=== PATIENT | male | born 1930 | race African-American/Black ===

== ENCOUNTER 2019-09-10 17:12 | Inpatient (IN) | payer MEDICARE ==
[~2019-09-10] VITALS: Ht 180.3 cm; Wt 45.4 kg
--- NOTE | 2019-09-10 17:30 | NUR ---
ED Nurse Note: Pt brought in by ambulance from [facility] d/t failure to thrive x 1 day, poor PO intake. Per pt, he [facility] not like food at the [facility], and he also reports feeling like something is stuck in his throat. Respirations even and unlabored on room air. Vitals stable as documented.
[2019-09-10] MEDS ORDERED: SENNO8.6 MG ORAL (17:43)
[2019-09-10] MEDS ORDERED: VOLTAREN100 G1 TP (17:43)
[2019-09-10] MEDS ORDERED: MULTIPLE VITAM1 EAC6 PO (17:43)
[2019-09-10] MEDS ORDERED: FERROUS SULFAT325 MG ORAL (17:43)
[2019-09-10] MEDS ORDERED: FLONASE ALLERG9.9 ML NS (17:43)
[2019-09-10] MEDS ORDERED: SYNTHROID100 MCG ORAL (17:43)
[2019-09-10] MEDS ORDERED: GUAIFENESIN DM118 M1 ORAL (17:43)
[2019-09-10] MEDS ORDERED: DULCOLAX10 MG RC (17:43)
[2019-09-10] MEDS ORDERED: HYDRALAZINE HCL25 M1 ORAL (17:43)
[2019-09-10] MEDS ORDERED: DOCUSATE SODIU250 MG ORAL (17:43)
[2019-09-10] MEDS ORDERED: AMIODARONE HCL100 MG ORAL (17:43)
[2019-09-10] MEDS ORDERED: ACETAMINOPHEN325 M1 ORAL (17:43)
[2019-09-10] MEDS ORDERED: MILK OF MA400 MG/51 ORAL (17:43)
[2019-09-10] MEDS ORDERED: ATORVASTATIN CA80 MG ORAL (17:43)
[2019-09-10] MEDS ORDERED: CRANBERRY425 MG PO (17:43)
[2019-09-10] MEDS ORDERED: ASPIRIN81 MG ORAL (17:43)
[2019-09-10] MEDS ORDERED: PROTONIX40 MG ORAL (17:43)
[2019-09-10] MEDS ORDERED: MIRALAX17 G2 ORAL (17:43)
[2019-09-10] MEDS ORDERED: FLEET ENEMA133 ML RECTAL (17:43)
[2019-09-10] MEDS ORDERED: MAGNESIUM OXID400 M1 ORAL (17:43)
[2019-09-10] MEDS ORDERED: PROSCAR5 MG ORAL (17:43)
--- NOTE | 2019-09-10 17:59 | NUR ---
ED Nurse Note: gave pt urinal for urine specimen. Pt does not want to be straight cath'd for urine, but says he cannot void yet.
[2019-09-10 18:04] VITALS: BP 141/72
[2019-09-10 18:05] LABS: BASOPHILS % (AUTO) 0.8 % (0.0-2.0); EOSINOPHILS % (AUTO) 0.3 % (0.0-3.0); HEMATOCRIT 41.6 % (42.0-52.0); HEMOGLOBIN 12.5 G/DL (14.2-18.0); LYMPHOCYTES % (AUTO) 11.6 % (20.0-45.0); MEAN CORPUSCULAR VOLUME 103 FL (80-99); MONOCYTES % (AUTO) 6.8 % (1.0-10.0); NEUTROPHILS % (AUTO) 80.5 % (45.0-75.0); PLATELET COUNT 136 K/UL (150-450); RED BLOOD COUNT 4.03 M/UL (4.70-6.10); RED CELL DISTRIBUTION WIDTH 14.6 % (11.6-14.8); WHITE BLOOD COUNT 5.9 K/UL (4.8-10.8)
--- NOTE | 2019-09-10 18:08 | Emergency Room Report ---
History of Present Illness General Chief Complaint: General Complaint Source: Medical Record, EMS Present Illness HPI Disclaimer: Please note that this report is being documented using [employer] technology. This can lead to erroneous entry secondary to incorrect interpretation by the dictating instrument. HPI: 88-year-old male history of metabolic encephalopathy, atrial fibrillation, peripheral vascular disease, dysphasia presented for difficulty eating. Apparently patient has had difficulty eating for the past few days. States he sometimes coughs when he eats. He states he is hungry. Patient does report a cough but denies shortness of breath or fever.. Patient was recently COVID +2 months ago. PMH: As above PSH: Reviewed Social Hx: Currently lives in a snf facility Allergies: Coded Allergies: No Known Allergies (Unverified , 09/10/19) COVID-19 Screening Contact w/high risk pt: No Recent Travel to affected area: No Experienced COVID-19 symptoms?: No COVID-19 Testing performed HR ADVISOR: No Patient History Reviewed Nursing Documentation: PMH: Agreed; PSxH: Agreed Nursing Documentation-PMH Past Medical History: No History, Except For Review of Systems All Other Systems: negative except mentioned in HPI Physical Exam Vital Signs Date Time Temp Pulse Resp B/P (MAP) Pulse Ox O2 Delivery O2 Flow Rate FiO2 09/10/19 17:13 97.5 72 16 144/66 (92) 95 Room Air Sp02 EP Interpretation: reviewed, normal General Appearance: cachetic, Chronically Ill Head: normocephalic, atraumatic Eyes: bilateral eye PERRL, bilateral eye EOMI ENT: hearing grossly normal, dry mucus membranes Neck: full range of motion, supple Respiratory: lungs clear, normal breath sounds, no rhonchi, no respiratory distress, no retraction, no wheezing Cardiovascular #1: normal peripheral pulses, regular rate, rhythm, no murmur Gastrointestinal: non tender, soft, non-distended, no guarding Neurologic: alert, oriented x3, no focal defects Skin: normal color, warm/dry Medical Decision Making Diagnostic Impression: Primary Impression: Failure to thrive Additional Impression: Dysphagia ER Course MDM: Patient presented from sn[facility] facility with difficulty swallowing and eating. Differential included failure to thrive, dysphagia,did consider pneumonia secondary to perspiration as well Clinical course-IV inserted cardiac monitoring pulse oximetry, patient was given IV fluids. He denies any fevers or shortness of breath. His vital signs were stable. Had difficulty eating for the past few weeks. I do believe patient would benefit from admission for IV hydration, and swallow evaluation. Laboratory studies show no leukocytosis. Urinalysis with 3+ concerns which is consistent with patient's poor p.o. intake. Labs - Laboratory Tests Test 09/10/19 17:30 09/10/19 18:40 White Blood Count 5.9 K/UL (4.8-10.8) Red Blood Count 4.03 M/UL (4.70-6.10) L Hemoglobin 12.5 G/DL (14.2-18.0) L Hematocrit 41.6 % (42.0-52.0) L Mean Corpuscular Volume 103 FL (80-99) H Mean Corpuscular Hemoglobin 31.1 PG (27.0-31.0) H Mean Corpuscular Hemoglobin Concent 30.1 G/DL (32.0-36.0) L Red Cell Distribution Width 14.6 % (11.6-14.8) Platelet Count 136 K/UL (150-450) L Mean Platelet Volume 9.6 FL (6.5-10.1) Neutrophils (%) (Auto) 80.5 % (45.0-75.0) H Lymphocytes (%) (Auto) 11.6 % (20.0-45.0) L Monocytes (%) (Auto) 6.8 % (1.0-10.0) Eosinophils (%) (Auto) 0.3 % (0.0-3.0) Basophils (%) (Auto) 0.8 % (0.0-2.0) Sodium Level 143 MMOL/L (136-145) Potassium Level 3.5 MMOL/L (3.5-5.1) Chloride Level 102 MMOL/L (98-107) Carbon Dioxide Level 31 MMOL/L (21-32) Anion Gap 10 mmol/L (5-15) Blood Urea Nitrogen 27 mg/dL (7-18) H Creatinine 1.1 MG/DL (0.55-1.30) Estimated Glomerular Filtration Rate > 60 mL/min (>60) Glucose Level 106 MG/DL (74-106) Calcium Level 9.9 MG/DL (8.5-10.1) Total Bilirubin 0.7 MG/DL (0.2-1.0) Aspartate Amino Transferase (AST) 16 U/L (15-37) Alanine Aminotransferase (ALT) 17 U/L (12-78) Alkaline Phosphatase 128 U/L (46-116) H Total Protein 7.0 G/DL (6.4-8.2) Albumin 3.2 G/DL (3.4-5.0) L Globulin 3.8 g/dL Albumin/Globulin Ratio 0.8 (1.0-2.7) L Lipase 122 U/L (73-393) Urine Color Yellow Urine Appearance Clear Urine pH 6 (4.5-8.0) Urine Specific [place] 1.025 (1.005-1.035) Urine Protein 2+ (NEGATIVE) H Urine Glucose (UA) Negative (NEGATIVE) Urine Ketones 3+ (NEGATIVE) H Urine Blood Negative (NEGATIVE) Urine Nitrite Negative (NEGATIVE) Urine Bilirubin Negative (NEGATIVE) Urine Urobilinogen Normal MG/DL (0.0-1.0) Urine Leukocyte Esterase Negative (NEGATIVE) Urine RBC 0 /HPF (0 - 0) Urine WBC 0-2 /HPF (0 - 0) Urine Squamous Epithelial Cells None /LPF (NONE/OCC) Urine Bacteria Occasional /HPF (NONE) Urine Hyaline Casts 0-2 /LPF (NONE) H Urine Mucus Moderate /LPF (NONE/OCC) H Plan is to admit patient to the medical floor for further observation and treatment and hydration. Last Vital Signs Date Time Temp Pulse Resp B/P (MAP) Pulse Ox O2 Delivery O2 Flow Rate FiO2 09/10/19 17:13 97.5 72 16 144/66 (92) 95 Room Air Disposition: ADMITTED INPATIENT Condition: Serious Referrals: Brianna Champagne MD (PCP) Chan Alejandre M.D. Sep 10, 2019 18:08
--- NOTE | 2019-09-10 18:19 | Diagnostic Imaging Report ---
EXAM: XR Chest, 1 View CLINICAL HISTORY: COUGH TECHNIQUE: Frontal view of the chest. COMPARISON: No relevant prior studies available. FINDINGS: Lungs: Emphysematous changes and architectural distortion in the lungs. Pulmonary nodule in the right lower lobe measuring 1 cm. Possible additional nodular opacity in the left midlung measuring 1 cm. Right apical pleural scarring. Pleural space: No pleural effusion. No pneumothorax. Heart: Unremarkable. No cardiomegaly. Bones/joints: Unremarkable. IMPRESSION: 1. Emphysematous changes and architectural distortion in the lungs. 2. Pulmonary nodule in the right lower lobe measuring 1 cm and possible additional nodule in the left mid to upper lung.
[2019-09-10 18:21] LABS: ANION GAP 10 mmol/L (5-15); BLOOD UREA NITROGEN 27 mg/dL (7-18); CALCIUM 9.9 MG/DL (8.5-10.1); CARBON DIOXIDE 31 MMOL/L (21-32); CHLORIDE 102 MMOL/L (98-107); CREATININE 1.1 MG/DL (0.55-1.30); POTASSIUM 3.5 MMOL/L (3.5-5.1); SODIUM 143 MMOL/L (136-145)
[2019-09-10 18:26] LABS: ALANINE AMINOTRANSFERASE 17 U/L (12-78); ALBUMIN 3.2 G/DL (3.4-5.0); ALBUMIN/GLOBULIN RATIO 0.8 (1.0-2.7); ALKALINE PHOSPHATASE 128 U/L (46-116); ASPARTATE AMINO TRANSFERASE 16 U/L (15-37); BILIRUBIN,TOTAL 0.7 MG/DL (0.2-1.0)
--- NOTE | 2019-09-10 19:14 | NUR ---
HAND-OFF: Report given to LUCINA Weaver. Pt in stable condition; plan of care endorsed.
[2019-09-10 19:15] VITALS: BP 135/70
--- NOTE | 2019-09-10 19:15 | NUR ---
ED Nurse Note: Received report from Unique VERDUGO. Pt awake ad alert, verbally responsive. No SOB. Safety and comfort provided.
[2019-09-10 19:28] LABS: APPEARANCE,URINE CLEAR; BILIRUBIN, URINE NEGATIVE (NEGATIVE); GLUCOSE, URINE (UA) NEGATIVE (NEGATIVE); KETONES,URINE 3+ (NEGATIVE); LEUKOCYTE ESTERASE ,URINE NEGATIVE (NEGATIVE); NITRITE,URINE NEGATIVE (NEGATIVE); PH,URINE 6 (4.5-8.0); PROTEIN,URINE 2+ (NEGATIVE); UROBILINOGEN,URINE NORMAL MG/DL (0.0-1.0)
--- NOTE | 2019-09-10 19:54 | NUR ---
ED Nurse Note: Report given to Cheli VERDUGO.
--- NOTE | 2019-09-10 19:55 | NUR ---
TRANSFER TO FLOOR: Patient transferred to [facility]. Report given to Cheli VERDUGO. Pt awake and alert, verbally responsive. No SOB. IV line on right forearm 20g patent and intact. No skin issues. Med recon done. All belongings sent with the patient.
[2019-09-10 19:56] LABS: COLOR,URINE YELLOW
[2019-09-10 20:11] VITALS: BP 168/86
[2019-09-10] MEDS ORDERED: Milk of Magnesia 30ml Ud ORAL PRN (22:00)
[2019-09-10] MEDS: Diclofenac 1% Gel 100gm TOPIC SCH (22:00)
[2019-09-10] MEDS ORDERED: Fleet's Enema 133ml RECTAL ONE (22:00)
[2019-09-10] MEDS ORDERED: guaiFENesin /DM 10ml syrup ORAL PRN (22:00)
[2019-09-10] MEDS: HydrALAZINE 25mg tab ORAL SCH (22:50)
[2019-09-11] VITALS (7 sets, daily range): BP systolic 143–166; BP diastolic 64–81
--- NOTE | 2019-09-11 01:43 | NUR ---
Nurse notes Received report from ER nurse Chidi. Pt arrived to floor via hospital bed escorted by ER staff. Pt in stable condition awake alert oriented x3. pt able to make needs known IV to RFA patent and intact. Pt able to void . oriented to floor place called light in reach instructed pt to call for assistance. bed on lowest position belongings at bedside inventory list signed place in patients chart. De notified for new orders. will contiue to monitor for treatment and care.. .
[2019-09-11] MEDS: HydrALAZINE 25mg tab ORAL SCH ×3 (06:11→21:28)
--- NOTE | 2019-09-11 07:55 | NUR ---
Nurses Notes Report given to Elaine CHAPPELL
--- NOTE | 2019-09-11 07:56 | NUR ---
NURSE NOTES: Received report from Malia VERDUGO, rounds made pt sleeping with no s/s of distress , pt has a Right fore arm 20G, with IVF, patent asymptomatic, bed in low locked position, side rail up X2 , call light with in reach,will continue with plan of care
[2019-09-11] MEDS: Flonase Nasal Inhaler 16gm NASAL SCH (09:09)
[2019-09-11] MEDS: Miralax 17gm pkt ORAL SCH (09:09)
[2019-09-11] MEDS: Amiodarone 200mg tab ORAL SCH (09:10)
[2019-09-11] MEDS: Sennosides 8.6mg tab ORAL SCH (09:10)
[2019-09-11] MEDS: Diclofenac 1% Gel 100gm TOPIC SCH ×5 (09:10→21:35)
[2019-09-11] MEDS: Docusate 250mg cap ORAL SCH (09:10)
[2019-09-11] MEDS: Heparin 5000 units/ml inj SUBQ SCH ×2 (09:12→21:32)
[2019-09-11] MEDS: Magnesium Oxide 400mg tab ORAL SCH (09:29)
[2019-09-11] MEDS: Aspirin Baby 81mg ORAL SCH (09:29)
--- NOTE | 2019-09-11 10:37 | NUR ---
RD ASSESSMENT & RECOMMENDATIONS SEE CARE ACTIVITY FOR COMPLETE ASSESSMENT DAILY ESTIMATED NEEDS: Needs based on Severely underweight/ 46kg 30-40 kcals/kg 2059-5267 total kcals 1-2 g protein/kg 46-92 g total protein 25-30 mL/kg 1174-5678 total fluid mLs NUTRITION DIAGNOSIS: * Increased kcal/prot needs R/T for wt gain as evidenced by pt severely underweight, at 60% IBW w/ BMI of 14.4. * Swallowing difficulty R/T dysphagia as evidenced by pt reports h/o dysphagia and pain w/ eating, currently NPO, pending MANAGER DESKTOP eval. CURRENT DIET:NPO PO DIET RECOMMENDATIONS: Liberalized REGULAR/ texture per MANAGER DESKTOP ADDITIONAL RECOMMENDATIONS: * Daily calibrated bedscale wt to closely monitor wt trend * With diet order -> add Ensure Enlive TID w/ meals, Snacks BID -> Calorie count x 48 hrs * Consider checking TSH level: wt loss + underweight * Monitor lytes, replete as needed * Consult RD for TF rec if medically indicated
[2019-09-11] MEDS ORDERED: Omnipaque-300 100ml vial INJ PRN ×2 (11:15→13:00)
--- NOTE | 2019-09-11 13:10 | NUR ---
NURSE NOTES: pt taken for CT via hospital bed
--- NOTE | 2019-09-11 13:15 | Consultation ---
DATE OF CONSULTATION: 09/11/2019 CONSULTING PHYSICIAN: Jose Cali MD. CHIEF COMPLAINT: Failure to thrive, dysphagia. HISTORY OF PRESENT ILLNESS: This is an 88-year-old male with history of metabolic encephalopathy, atrial fibrillation, peripheral vascular disease, dysphagia, presented to the hospital with complaint of difficulty with eating. The patient apparently had a recent COVID positive about two months ago. The patient also complained of significant weight loss. This problem with eating has been going on for long time for him. He states he sometimes has difficulty with swallowing and . PAST MEDICAL HISTORY: 1. History of metabolic encephalopathy. 2. Atrial fibrillation. 3. Peripheral vascular disease. 4. Dysphagia. 5. Recent history of COVID positive pneumonia, status post treatment. 6. BPH. 7. GERD. ALLERGIES: No known allergies. MEDICATIONS: Please see medication reconciliation list. FAMILY HISTORY: Noncontributory. SOCIAL HISTORY: There is no history of tobacco, alcohol, or drug abuse. REVIEW OF SYSTEMS: A 10-point review of systems was performed and pertinent positives as dictated in the HPI. PHYSICAL EXAMINATION: VITAL SIGNS: Temperature is 97.1, pulse is 58, respirations 19, blood pressure is 159/70. HEENT: Normocephalic, atraumatic. Sclerae anicteric. NECK: Supple. No evidence of obvious lymphadenopathy. CARDIOVASCULAR: Regular rate and rhythm. Plus S1, S2. LUNGS: Decreased breath sounds bilaterally based on supine exam. ABDOMEN: Soft, nontender. No rebound. No guarding. No peritoneal sign. EXTREMITIES: No cyanosis, no clubbing, no edema. LABORATORY DATA: White count is 5.9, hemoglobin 12, hematocrit 41, platelet count is 136,000. Chem-7, sodium is 142, potassium 3.5, BUN is 27, creatinine is 1.1. ASSESSMENT AND PLAN: This is an 88-year-old male with significant weight loss, dysphagia, microcytic anemia. PLAN: Swallow evaluation. Dejesus CT to rule out malignancy. Tumor markers. Anemia workup. We will make further recommendation as above results are available. I want to thank, Dr. Champagne, for this kind referral. Jose Cali M.D. DR: IVETH JOB#: [id number] CC: Brianna Champagne MD.; Fax#: [phone]
--- NOTE | 2019-09-11 14:20 | Diagnostic Imaging Report ---
EXAM: CT Abdomen and Pelvis With Intravenous Contrast CLINICAL HISTORY: ABD PAIN TECHNIQUE: Axial computed tomography images of the abdomen and pelvis with intravenous contrast. CTDI is 2.9 mGy and DLP is 146.7 mGy-cm. One or more of the following dose reduction techniques were used: automated exposure control, adjustment of the mA and/or kV according to patient size, use of iterative reconstruction technique. COMPARISON: None FINDINGS: Lung bases: Nonspecific cluster of nodules in the right lower lobe. Question infectious/inflammatory process or sequela. Dependent and bibasilar atelectasis. Calcified granuloma in the anterior right lower lobe. Pleural space: Small bilateral pleural effusions. Heart: Mild cardiomegaly. ABDOMEN: Liver: Unremarkable. No mass. Gallbladder and bile ducts: Unremarkable. No calcified stones. No ductal dilation. Pancreas: Atrophy of the pancreas. Nonspecific small cystic lesion in the pancreatic tail. No ductal dilation. Spleen: Unremarkable. No splenomegaly. Adrenals: Unremarkable. No mass. Kidneys and ureters: Bilateral renal cysts. Some of the renal hypodensities are too small to definitively characterize. No hydronephrosis or definite obstructing stone. Stomach and bowel: Large amount of stool in the rectum with rectal wall thickening, concerning for fecal impaction and stercoral inflammation. Diverticulosis without definite evidence of diverticulitis probable Mildly prominent fluid and gas-filled small bowel loops are nonspecific but may represent enteritis or ileus in the appropriate clinical setting.. No bowel obstruction. PELVIS: Appendix: No findings to suggest acute appendicitis. Bladder: Mild prominence of the bladder wall with tiny gas foci could represent cystitis. Please correlate with urinalysis. Reproductive: Unremarkable as visualized. ABDOMEN and PELVIS: Intraperitoneal space: Ascites/mesenteric edema. Prominence of the wall of the stomach may be secondary to under distention or ascites. Gastritis is not excluded. Bones/joints: Age indeterminate but possibly chronic compression deformities of the T10, T11, T12, L2, and L3 vertebral bodies. Probable bone islands in the pelvic bones. Degenerative changes of the spine. No dislocation. Soft tissues: Anasarca. Vasculature: Atherosclerotic changes of the vasculature. 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 No aortic dissection. Lymph nodes: Unremarkable. No enlarged lymph nodes. IMPRESSION: 1. Small bilateral pleural effusions. 2. Nonspecific cluster of nodules in the right lower lobe. Question infectious/inflammatory process or sequela. 3. Large amount of stool in the rectum with rectal wall thickening, concerning for fecal impaction and stercoral inflammation. 4. Atrophy of the pancreas. Nonspecific small cystic lesion in the pancreatic tail. 5. Atherosclerotic changes of the vasculature. 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 No aortic dissection. 6. Anasarca. 7. Ascites/mesenteric edema. 8. Prominence of the wall of the stomach may be secondary to under distention or ascites. Gastritis is not excluded. 9. Age indeterminate but possibly chronic compression deformities of the T10, T11, T12, L2, and L3 vertebral bodies. 10. Mild prominence of the bladder wall with tiny gas foci could represent cystitis. Please correlate with urinalysis.
--- NOTE | 2019-09-11 15:11 | History & Physical ---
History of Present Illness General Date patient seen: Sep 11, 2019 Time patient seen: 11:00 Reason for Hospitalization: General Complaint Present Illness HPI This is a 88 yo M w/ a pmh of Atrial fibrillation and PAD who presents, BIBA from SNF 2/2 Dysphagia; when patient was visited at bedside it was evident that he is very thin, and appears to have failure to thrive as well. He states this has been going on for some time, and that he often chokes when he tries to swallow. He is hungry, but he states it often hurts to swallow, or he feels like he cannot get food down. When asked if this has been worked up in the past , patient was unable to provide detailed history. ER report state she tested negative for COVID two months ago. Labs reveal dehydration and macrocytic anemia. Unclear what/if patient has had colonoscopy in the past. PMH: Afib, FTT, Dysphagia, HTN Allergies: Coded Allergies: No Known Allergies (Unverified , 09/10/19) COVID-19 Screening Contact w/high risk pt: No Recent Travel to affected area: No Experienced COVID-19 symptoms?: No Medication History Scheduled Amiodarone Hcl (Amiodarone Hcl), 100 MG ORAL DAILY, (Reported) Aspirin* (Aspirin*), 81 MG ORAL DAILY, (Reported) Atorvastatin Calcium* (Lipitor*), 80 MG ORAL BEDTIME, (Reported) Bisacodyl (Dulcolax), 10 MG RC DAILY, (Reported) Cranberry Extract (Cranberry), 425 MG PO DAILY, (Reported) Diclofenac Sodium (Voltaren), 100 GM TP Q6HR, (Reported) Docusate Sodium* (Docusate Sodium*), 250 MG ORAL DAILY, (Reported) Ferrous Sulfate* (Ferrous Sulfate*), 325 MG ORAL DAILY, (Reported) Finasteride* (Proscar*), 5 MG ORAL DAILY, (Reported) Fluticasone Propionate (Flonase Allergy Relief), 9.9 ML NS DAILY, (Reported) Hydralazine Hcl* (Hydralazine Hcl*), 25 MG ORAL EVERY 8 HOURS, (Reported) Levothyroxine Sodium* (Synthroid*), 100.5 MCG ORAL DAILY, (Reported) Magnesium Hydroxide* (Milk Of Magnesia*), 30 ML ORAL DAILY, (Reported) Magnesium Oxide (Magnesium Oxide), 400 MG ORAL DAILY, (Reported) Multivitamin (Multiple Vitamins), 1 EACH PO DAILY, (Reported) Na Phos,M-B/Na Phos,Di-Ba* (Fleet Enema*), 133 ML RECTAL DAILY, (Reported) Pantoprazole* (Protonix*), 40 MG ORAL DAILY, (Reported) Polyethylene Glycol 3350* (Miralax*), 34 GM ORAL DAILY, (Reported) Sennosides* (Senno*), 17.2 MG ORAL DAILY, (Reported) Scheduled PRN Acetaminophen* (Acetaminophen 325MG Tablet*), 650 MG ORAL Q4H PRN for fever/pain , (Reported) Guaifenesin/Dextromethorphan* (Guaifenesin Dm Syrup*), 10 ML ORAL Q6H PRN for For Cough, (Reported) Patient History Healthcare decision maker N Resuscitation status Advanced Directive on File Review of Systems Review of Symptoms General ROS: weight loss+, + weakness Psychological ROS: no depression or mood changes, no memory loss Ophthalmic ROS: no visual changes or eye irritation ENT ROS: + difficulty swallowing Allergy and Immunology ROS: no allergic symptoms or urticaria Hematological and Lymphatic ROS: no swollen glands, unusual bleeding or bruising Endocrine ROS: no polyuria, polydipsia, weight changes, temperature intolerance Respiratory ROS: no cough, shortness of breath, or wheezing Cardiovascular ROS: no chest pain or dyspnea on exertion Gastrointestinal ROS: denies abdominal pain, bright red blood in stool. Musculoskeletal ROS: no myalgias or arthralgias Neurological ROS: no TIA or stroke symptoms Dermatological ROS: no new or changing skin lesions, rashes or pruritis Physical Exam Physical Exam General appearance: Frail, Thin, Cachectic Head: Normocephalic, without obvious abnormality, atraumatic Eyes: conjunctivae/corneas clear. PERRL, EOM's intact. Fundi benign Throat: Lips, mucosa, and tongue normal. Teeth and gums normal Neck: supple, symmetrical, trachea midline, no adenopathy, thyroid: not enlarged, symmetric, no tenderness/mass/nodules, no carotid bruit and no JVD Lungs: clear to auscultation bilaterally Heart: regular rate and rhythm, S1, S2 normal, no murmur, click, rub or gallop Abdomen: soft, non-tender. Bowel sounds normal. No masses, no organomegaly Extremities: extremities normal, atraumatic, no cyanosis or edema Pulses: 2+ and symmetric Skin: Skin color, texture, turgor normal. No rashes or lesions Neurologic: Grossly normal Last 24 Hour Vital Signs Date Time Temp Pulse Resp B/P (MAP) Pulse Ox O2 Delivery O2 Flow Rate FiO2 09/11/19 12:00 97.5 70 18 145/64 (91) 94 09/11/19 09:00 Room Air 09/11/19 08:00 97.9 70 18 146/81 (102) 98 09/11/19 06:11 159/70 09/11/19 04:25 97.1 58 159/70 (99) 09/11/19 00:00 98.4 64 19 166/78 (107) 99 09/10/19 22:50 168/86 09/10/19 21:00 Room Air 09/10/19 20:50 Room Air 09/10/19 20:11 97.1 66 19 168/86 (113) 94 09/10/19 19:55 97.5 82 15 137/69 96 Room Air 09/10/19 19:15 97.5 74 19 135/70 97 Room Air 09/10/19 18:04 97.5 71 16 141/72 96 Room Air 09/10/19 18:04 71 16 Room Air 09/10/19 17:13 97.5 72 16 144/66 (92) 95 Room Air Intake and Output 09/10/19 09/11/19 19:00 07:00 Intake Total 2000 ml Output Total 100 ml Balance -100 ml 2000 ml Intake IV Total 2000 ml Output Urine Total 100 ml # Voids 1 Laboratory Tests Test 09/10/19 17:30 09/10/19 18:40 White Blood Count 5.9 K/UL (4.8-10.8) Red Blood Count 4.03 M/UL (4.70-6.10) L Hemoglobin 12.5 G/DL (14.2-18.0) L Hematocrit 41.6 % (42.0-52.0) L Mean Corpuscular Volume 103 FL (80-99) H Mean Corpuscular Hemoglobin 31.1 PG (27.0-31.0) H Mean Corpuscular Hemoglobin Concent 30.1 G/DL (32.0-36.0) L Red Cell Distribution Width 14.6 % (11.6-14.8) Platelet Count 136 K/UL (150-450) L Mean Platelet Volume 9.6 FL (6.5-10.1) Neutrophils (%) (Auto) 80.5 % (45.0-75.0) H Lymphocytes (%) (Auto) 11.6 % (20.0-45.0) L Monocytes (%) (Auto) 6.8 % (1.0-10.0) Eosinophils (%) (Auto) 0.3 % (0.0-3.0) Basophils (%) (Auto) 0.8 % (0.0-2.0) Sodium Level 143 MMOL/L (136-145) Potassium Level 3.5 MMOL/L (3.5-5.1) Chloride Level 102 MMOL/L (98-107) Carbon Dioxide Level 31 MMOL/L (21-32) Anion Gap 10 mmol/L (5-15) Blood Urea Nitrogen 27 mg/dL (7-18) H Creatinine 1.1 MG/DL (0.55-1.30) Estimat Glomerular Filtration Rate > 60 mL/min (>60) Glucose Level 106 MG/DL (74-106) Calcium Level 9.9 MG/DL (8.5-10.1) Total Bilirubin 0.7 MG/DL (0.2-1.0) Aspartate Amino Transf (AST/SGOT) 16 U/L (15-37) Alanine Aminotransferase (ALT/SGPT) 17 U/L (12-78) Alkaline Phosphatase 128 U/L (46-116) H Total Protein 7.0 G/DL (6.4-8.2) Albumin 3.2 G/DL (3.4-5.0) L Globulin 3.8 g/dL Albumin/Globulin Ratio 0.8 (1.0-2.7) L Lipase 122 U/L (73-393) Urine Color Yellow Urine Appearance Clear Urine pH 6 (4.5-8.0) Urine Specific [place] 1.025 (1.005-1.035) Urine Protein 2+ (NEGATIVE) H Urine Glucose (UA) Negative (NEGATIVE) Urine Ketones 3+ (NEGATIVE) H Urine Blood Negative (NEGATIVE) Urine Nitrite Negative (NEGATIVE) Urine Bilirubin Negative (NEGATIVE) Urine Urobilinogen Normal MG/DL (0.0-1.0) Urine Leukocyte Esterase Negative (NEGATIVE) Urine RBC 0 /HPF (0 - 0) Urine WBC 0-2 /HPF (0 - 0) Urine Squamous Epithelial Cells None /LPF (NONE/OCC) Urine Bacteria Occasional /HPF (NONE) Urine Hyaline Casts 0-2 /LPF (NONE) H Urine Mucus Moderate /LPF (NONE/OCC) H Microbiology Date/Time Source Procedure Growth Status 09/10/19 18:45 Rectum Received Height (Feet): 5 Height (Inches): 11.00 Weight (Pounds): 100 Medications Current Medications Medications (Trade) Dose Ordered Sig/Drew Route PRN Reason Start Time Stop Time Status Last Admin Dose Admin Acetaminophen (Tylenol) 650 mg Q4H PRN ORAL fever/pain 09/10/19 22:00 10/10/19 21:59 Amiodarone HCl (Cordarone) 100 mg DAILY ORAL 09/11/19 09:00 12/10/19 08:59 09/11/19 09:10 Aspirin (ASA) 81 mg DAILY ORAL 09/11/19 09:00 10/26/19 08:59 09/11/19 09:29 Atorvastatin Calcium (Lipitor) 80 mg BEDTIME ORAL 09/11/19 21:00 12/10/19 20:59 Barium Sulfate (Readi-Cat 2) 450 ml NOW PRN ORAL Radiology Procedure 09/11/19 11:15 09/13/19 11:11 Barium Sulfate (Readi-Cat 2) 450 ml NOW PRN ORAL Radiology Procedure 09/11/19 13:00 09/14/19 12:59 Bisacodyl (Dulcolax) 10 mg DAILY PRN RECTAL Constipation 09/10/19 22:00 12/09/19 21:59 Diclofenac Sodium (Voltaren gel) 1 applic QID TOPIC 09/10/19 22:00 12/09/19 21:59 09/11/19 09:10 Docusate Sodium (Colace) 250 mg DAILY ORAL 09/11/19 09:00 10/11/19 08:59 09/11/19 09:10 Ferrous Sulfate (Feosol) 325 mg DAILY ORAL 09/11/19 09:00 12/10/19 08:59 09/11/19 09:09 Finasteride (Proscar) 5 mg DAILY ORAL 09/11/19 09:00 12/10/19 08:59 09/11/19 09:09 Fluticasone Propionate (Flonase) 1 spray DAILY NASAL 09/11/19 09:00 10/11/19 08:59 09/11/19 09:09 Guaifenesin/ Dextromethorphan (Robitussin DM Syrup) 10 ml Q6H PRN ORAL For Cough 09/10/19 22:00 12/09/19 21:59 Heparin Sodium (Porcine) (Heparin 5000 units/ml) 5,000 units EVERY 12 HOURS SUBQ 09/11/19 09:00 10/26/19 08:59 09/11/19 09:12 Hydralazine HCl (Apresoline) 25 mg EVERY 8 HOURS ORAL 09/10/19 22:00 12/09/19 21:59 09/11/19 06:11 Iohexol (OMNIPAQUE-300 100ml) 100 ml NOW PRN INJ Radiology Procedure 09/11/19 11:15 09/13/19 11:11 Iohexol (OMNIPAQUE-300 100ml) 100 ml NOW PRN INJ Radiology Procedure 09/11/19 13:00 09/14/19 12:59 Levothyroxine Sodium (Synthroid) 100 mcg DAILY@0630 ORAL 09/11/19 06:30 10/11/19 06:29 09/11/19 06:11 Magnesium Hydroxide (Mom) 30 ml DAILY PRN ORAL Constipation 09/10/19 22:00 10/10/19 21:59 Magnesium Oxide (Mag-Ox 400mg) 400 mg DAILY ORAL 09/11/19 09:00 10/11/19 08:59 09/11/19 09:29 Multivitamins (Multivitamins) 1 tab DAILY ORAL 09/11/19 09:00 10/11/19 08:59 09/11/19 09:09 Pantoprazole (Protonix) 40 mg DAILY ORAL 09/11/19 09:00 10/11/19 08:59 09/11/19 09:09 Polyethylene Glycol (Miralax) 34 gm DAILY ORAL 09/11/19 09:00 10/11/19 08:59 09/11/19 09:09 Sennosides (Senokot) 17.2 mg DAILY ORAL 09/11/19 09:00 10/11/19 08:59 09/11/19 09:10 Sodium Chloride 1,000 ml @ 75 mls/hr [id number] IV 09/10/19 22:00 10/10/19 21:59 09/10/19 22:00 Assessment/Plan Assessment/Plan: Assessment #FTT, concern for metastatic process as patient also currently has ongoing dysphagia w/ frequent choking episodes, and weight loss #A-Fib, not on AC #HTN #Macrocytic Anemia #Hypothyroidism, pending TSH #BPH Plan Consult to GI; NPO until swallow Eval; gentle IVF w/ D5NS. Will obtain B12 and Folate. Patient to have CT A/P to assess for metastatic process, also anticipate EGD/[place] , but will f/u with GI. Continue SNF meds including Amiodarone, Atorvastatin,ASA, Synthroid, and Finasteride. Obtain echo to assess CHADS VASC. DVT and GI ppx. NPO until swallow eval. *IF CT A/P not revealing, and GI w/u WNL, then will proceed with Oncology work up. [facility] Hospital declaration INPATIENT level of care is warranted for this patient because patient is a 88 year old with Failure to Thrive who presents with suspicion of Cancerous process. I have a high level of concern because of FTT. Patient care is expected to be greater than 2 midnights as dysphagia process needs to be worked up. Paloma Hughes D.O. Sep 11, 2019 15:11
[2019-09-11] MEDS: D5NS 1,000 ML IV SCH (16:18)
--- NOTE | 2019-09-11 17:46 | NUR ---
NURSE NOTES: Spoke to regarding patient and keep NPO until ST evaluation done. Order noted and carried out.
--- NOTE | 2019-09-11 19:23 | NUR ---
NURSE NOTES: Received report from LUCINA Henry. Pt is awake, lying semi-hazel's; comfortably resting. No signs of acute distress noted. Pt denies any pain at this time. AOx3; able to make needs known. Checked IV site, line, and rate; patent and running. No erythema, bleeding, or infiltration noted. Bed at lowest position. Brakes on. Siderails up x3. Call light within reach. Will continue to monitor.
--- NOTE | 2019-09-11 19:51 | NUR ---
HAND-OFF: Report given to Paloma VERDUGO, pt stable.
[2019-09-11] MEDS: Atorvastatin 80mg tab ORAL SCH (21:27)
[2019-09-12] MEDS: D5NS 1,000 ML IV SCH ×3 (01:39→21:04)
[2019-09-12 04:00] VITALS: BP 154/69
[2019-09-12] MEDS: HydrALAZINE 25mg tab ORAL SCH ×3 (05:33→21:05)
--- NOTE | 2019-09-12 07:17 | NUR ---
HAND-OFF: Report given to LUCINA Camejo. Pt is sleeping and in stable condition. Plan of care endorsed.
--- NOTE | 2019-09-12 07:30 | NUR ---
NURSE NOTES: Received report from Paloma VERDUGO. Patient is awake and oriented, in no apparent distress, reporting no pain. IVF running per order. Fall precautions maintained. Side rails upx2, bed low and locked, call light within reach, bed alarm armed.
[2019-09-12 08:00] VITALS: BP 166/68
--- NOTE | 2019-09-12 08:06 | General Progress Note ---
Assessment/Plan Assessment/Plan: 1. History of metabolic encephalopathy. 2. Atrial fibrillation. 3. Peripheral vascular disease. 4. Dysphagia. 5. Recent history of COVID positive pneumonia, status post treatment. 6. BPH. 7. GERD. 8. fecal impaction 9. pancreatic cyst 10. ascites 11. AAA 5 cm 12. Hypothroid bowel regimen speech eval Free T4 check push po's will fu anemia work up Subjective Allergies: Coded Allergies: No Known Allergies (Unverified , 09/10/19) Objective Last 24 Hour Vital Signs Date Time Temp Pulse Resp B/P (MAP) Pulse Ox O2 Delivery O2 Flow Rate FiO2 09/12/19 05:33 154/69 09/12/19 04:00 97.4 50 24 154/69 (97) 98 09/11/19 23:44 97.4 47 20 155/74 (101) 99 09/11/19 21:28 167/76 09/11/19 21:00 Room Air 09/11/19 20:00 97.3 50 18 166/75 (105) 96 09/11/19 16:10 143/68 09/11/19 16:00 97.9 50 20 143/68 (93) 95 09/11/19 12:00 97.5 70 18 145/64 (91) 94 09/11/19 09:00 Room Air Intake and Output 09/11/19 09/12/19 19:00 07:00 # Voids 2 Laboratory Tests 09/11/19 17:40: Iron Level 53, Vitamin B12 Level 1643H, Thyroid Stimulating Hormone (TSH) 11.215H Height (Feet): 5 Height (Inches): 11.00 Weight (Pounds): 100 General Appearance: alert EENT: normal ENT inspection Neck: supple Cardiovascular: normal rate Respiratory/Chest: decreased breath sounds Abdomen: soft, hypoactive bowel sounds Extremities: non-tender Jose Cali MD Sep 12, 2019 08:06
--- NOTE | 2019-09-12 08:30 | NUR ---
NURSE NOTES: Per [place] to feed patient puree moist diet with thickened liquids prior to swallow evaluation, order entered by MD. Patient able to tolerate thickened liquid, no coughing noted, patient did not report any difficulty with swallowing.
--- NOTE | 2019-09-12 08:30 | NUR ---
NURSE NOTES: New wound discovered on left heel (DTI), wound is not open, not blanchable. Applied cavillon skin barrier and optifoam dressing to bilateral heels, heels floated bilaterally. Optifoam placed on sacrum for skin protection. Charge nurse notified of wound.
[2019-09-12 08:48] LABS: HEMATOCRIT 41.1 % (42.0-52.0); HEMOGLOBIN 12.6 G/DL (14.2-18.0); MEAN CORPUSCULAR VOLUME 103 FL (80-99); PLATELET COUNT 142 K/UL (150-450); RED BLOOD COUNT 3.98 M/UL (4.70-6.10); RED CELL DISTRIBUTION WIDTH 14.5 % (11.6-14.8); WHITE BLOOD COUNT 3.4 K/UL (4.8-10.8)
[2019-09-12] MEDS ORDERED: Fleet's Mineral Oil Enema RECTAL SCH (09:00)
[2019-09-12 09:12] LABS: PHOSPHORUS 1.9 MG/DL (2.5-4.9)
[2019-09-12 09:13] LABS: % IRON SATURATION 42 % (15-50); IRON 64 ug/dL (50-175); TOTAL IRON BINDING CAPACITY 152 ug/dL (250-450)
[2019-09-12 09:20] LABS: ALANINE AMINOTRANSFERASE 12 U/L (12-78); ALBUMIN 2.8 G/DL (3.4-5.0); ALBUMIN/GLOBULIN RATIO 0.8 (1.0-2.7); ALKALINE PHOSPHATASE 117 U/L (46-116); ANION GAP 8 mmol/L (5-15); ASPARTATE AMINO TRANSFERASE 17 U/L (15-37); BILIRUBIN,TOTAL 0.6 MG/DL (0.2-1.0); BLOOD UREA NITROGEN 16 mg/dL (7-18); CALCIUM 8.9 MG/DL (8.5-10.1); CARBON DIOXIDE 29 MMOL/L (21-32); CHLORIDE 106 MMOL/L (98-107); CREATININE 0.9 MG/DL (0.55-1.30); SODIUM 143 MMOL/L (136-145)
[2019-09-12] MEDS: Diclofenac 1% Gel 100gm TOPIC SCH ×4 (09:33→21:06)
[2019-09-12] MEDS: Flonase Nasal Inhaler 16gm NASAL SCH (09:33)
[2019-09-12] MEDS: Docusate 250mg cap ORAL SCH (09:35)
[2019-09-12] MEDS: Amiodarone 200mg tab ORAL SCH (09:35)
[2019-09-12] MEDS: Magnesium Oxide 400mg tab ORAL SCH (09:35)
[2019-09-12] MEDS: Sennosides 8.6mg tab ORAL SCH (09:35)
[2019-09-12] MEDS: Aspirin Baby 81mg ORAL SCH (09:36)
[2019-09-12] MEDS: Miralax 17gm pkt ORAL SCH (09:39)
[2019-09-12] MEDS: Heparin 5000 units/ml inj SUBQ SCH ×2 (09:40→21:18)
[2019-09-12 12:00] VITALS: BP 164/77
--- NOTE | 2019-09-12 13:27 | Internal Med Progress Note ---
Subjective Date of Service: Sep 12, 2019 Physician Name Paloma Hughes Attending Physician Brianna Champagne MD Current Medications Medications (Trade) Dose Ordered Sig/Drew Route PRN Reason Start Time Stop Time Status Last Admin Dose Admin Acetaminophen (Tylenol) 650 mg Q4H PRN ORAL fever/pain 09/10/19 22:00 10/10/19 21:59 Amiodarone HCl (Cordarone) 100 mg DAILY ORAL 09/11/19 09:00 12/10/19 08:59 09/12/19 09:35 Aspirin (ASA) 81 mg DAILY ORAL 09/11/19 09:00 10/26/19 08:59 09/12/19 09:36 Atorvastatin Calcium (Lipitor) 80 mg BEDTIME ORAL 09/11/19 21:00 12/10/19 20:59 09/11/19 21:27 Barium Sulfate (Readi-Cat 2) 450 ml NOW PRN ORAL Radiology Procedure 09/11/19 11:15 09/13/19 11:11 Barium Sulfate (Readi-Cat 2) 450 ml NOW PRN ORAL Radiology Procedure 09/11/19 13:00 09/14/19 12:59 Bisacodyl (Dulcolax) 10 mg DAILY PRN RECTAL Constipation 09/10/19 22:00 12/09/19 21:59 Dextrose/Sodium Chloride 1,000 ml @ 100 mls/hr Q10H IV 09/11/19 15:30 10/11/19 15:29 09/12/19 13:14 Diclofenac Sodium (Voltaren gel) 1 applic QID TOPIC 09/10/19 22:00 12/09/19 21:59 09/12/19 13:14 Docusate Sodium (Colace) 250 mg DAILY ORAL 09/11/19 09:00 10/11/19 08:59 09/12/19 09:35 Ferrous Sulfate (Feosol) 325 mg DAILY ORAL 09/11/19 09:00 12/10/19 08:59 09/12/19 09:34 Finasteride (Proscar) 5 mg DAILY ORAL 09/11/19 09:00 12/10/19 08:59 09/12/19 09:36 Fluticasone Propionate (Flonase) 1 spray DAILY NASAL 09/11/19 09:00 10/11/19 08:59 09/12/19 09:33 Guaifenesin/ Dextromethorphan (Robitussin DM Syrup) 10 ml Q6H PRN ORAL For Cough 09/10/19 22:00 12/09/19 21:59 Heparin Sodium (Porcine) (Heparin 5000 units/ml) 5,000 units EVERY 12 HOURS SUBQ 09/11/19 09:00 10/26/19 08:59 09/12/19 09:40 Hydralazine HCl (Apresoline) 25 mg EVERY 8 HOURS ORAL 09/10/19 22:00 12/09/19 21:59 09/12/19 13:14 Iohexol (OMNIPAQUE-300 100ml) 100 ml NOW PRN INJ Radiology Procedure 09/11/19 11:15 09/13/19 11:11 Iohexol (OMNIPAQUE-300 100ml) 100 ml NOW PRN INJ Radiology Procedure 09/11/19 13:00 09/14/19 12:59 Levothyroxine Sodium (Synthroid) 100 mcg DAILY@0630 ORAL 09/11/19 06:30 10/11/19 06:29 09/12/19 05:34 Linaclotide (Linzess) 290 mcg BEFORE BREAKFAST ORAL 09/13/19 06:30 12/12/19 06:29 Magnesium Hydroxide (Mom) 30 ml DAILY PRN ORAL Constipation 09/10/19 22:00 10/10/19 21:59 Magnesium Oxide (Mag-Ox 400mg) 400 mg DAILY ORAL 09/11/19 09:00 10/11/19 08:59 09/12/19 09:35 Multivitamins (Multivitamins) 1 tab DAILY ORAL 09/11/19 09:00 10/11/19 08:59 09/12/19 09:35 Pantoprazole (Protonix) 40 mg DAILY ORAL 09/11/19 09:00 10/11/19 08:59 09/12/19 09:36 Polyethylene Glycol (Miralax) 34 gm DAILY ORAL 09/11/19 09:00 10/11/19 08:59 09/12/19 09:39 Sennosides (Senokot) 17.2 mg DAILY ORAL 09/11/19 09:00 10/11/19 08:59 09/12/19 09:35 Allergies: Coded Allergies: No Known Allergies (Unverified , 09/10/19) Subjective Reviewed CT A/P; Shows concern for fecal impaction vs steralcolitis; also w/ concern for elements of gastritis, along w/ compression fractures which are chronic. Iron returned WNL. Will f/u with GI regarding plan of care and if patient should have EGD regarding Dysphagia. EKG performed at bedside showed sinus rhythm so currently am not worried about AC, as patient was not on this at SNF either. Awaiting swallow eval still. Endorsed to nursing to please not feed patient unless medication or gentle liquids w/ pills and to monitor very closely. TSH mildly high but on synthroid. Objective Last Vital Signs Date Time Temp Pulse Resp B/P (MAP) Pulse Ox O2 Delivery O2 Flow Rate FiO2 09/12/19 13:14 164/77 09/12/19 12:00 97.1 55 16 98 09/11/19 21:00 Room Air General Appearance: thin, other - frail EENT: PERRL/EOMI Cardiovascular: normal rate, regular rhythm Respiratory/Chest: lungs clear, normal breath sounds, no respiratory distress Abdomen: soft Neurologic: acidity tester II-XII grossly normal Skin: warm/dry Laboratory Tests Test 09/11/19 17:40 09/12/19 06:39 Iron Level 53 ug/dL (50-175) 64 ug/dL (50-175) Vitamin B12 Level 1643 PG/ML (193-986) H Thyroid Stimulating Hormone (TSH) 11.215 uiU/mL (0.358-3.740) White Blood Count 3.4 K/UL (4.8-10.8) L Red Blood Count 3.98 M/UL (4.70-6.10) L Hemoglobin 12.6 G/DL (14.2-18.0) L Hematocrit 41.1 % (42.0-52.0) L Mean Corpuscular Volume 103 FL (80-99) H Mean Corpuscular Hemoglobin 31.6 PG (27.0-31.0) H Mean Corpuscular Hemoglobin Concent 30.6 G/DL (32.0-36.0) L Red Cell Distribution Width 14.5 % (11.6-14.8) Platelet Count 142 K/UL (150-450) L Mean Platelet Volume 9.1 FL (6.5-10.1) Neutrophils (%) (Auto) % (45.0-75.0) Lymphocytes (%) (Auto) % (20.0-45.0) Monocytes (%) (Auto) % (1.0-10.0) Eosinophils (%) (Auto) % (0.0-3.0) Basophils (%) (Auto) % (0.0-2.0) Differential Total Cells Counted 100 Neutrophils % (Manual) 49 % (45-75) Lymphocytes % (Manual) 38 % (20-45) Monocytes % (Manual) 4 % (1-10) Eosinophils % (Manual) 9 % (0-3) H Basophils % (Manual) 0 % (0-2) Band Neutrophils 0 % (0-8) Platelet Estimate Decreased L Platelet Morphology Normal Anisocytosis 1+ Macrocytosis 1+ Sodium Level 143 MMOL/L (136-145) Potassium Level 3.0 MMOL/L (3.5-5.1) L Chloride Level 106 MMOL/L (98-107) Carbon Dioxide Level 29 MMOL/L (21-32) Anion Gap 8 mmol/L (5-15) Blood Urea Nitrogen 16 mg/dL (7-18) Creatinine 0.9 MG/DL (0.55-1.30) Estimat Glomerular Filtration Rate > 60 mL/min (>60) Glucose Level 115 MG/DL (74-106) H Calcium Level 8.9 MG/DL (8.5-10.1) Phosphorus Level 1.9 MG/DL (2.5-4.9) L Magnesium Level 1.9 MG/DL (1.8-2.4) Total Iron Binding Capacity 152 ug/dL (250-450) L Percent Iron Saturation 42 % (15-50) Unsaturated Iron Binding 88 ug/dL (112-346) L Total Bilirubin 0.6 MG/DL (0.2-1.0) Aspartate Amino Transf (AST/SGOT) 17 U/L (15-37) Alanine Aminotransferase (ALT/SGPT) 12 U/L (12-78) Alkaline Phosphatase 117 U/L (46-116) H Total Protein 6.3 G/DL (6.4-8.2) L Albumin 2.8 G/DL (3.4-5.0) L Globulin 3.5 g/dL Albumin/Globulin Ratio 0.8 (1.0-2.7) L Carcinoembryonic Antigen Pending Folate 7.9 NG/ML (8.6-58.9) L Microbiology Date/Time Source Procedure Growth Status 09/10/19 18:45 Nasal Nares MRSA Culture - Final Staphylococcus Aureus - Mrsa Complete 09/10/19 18:45 Rectum Received Intake and Output 09/11/19 09/12/19 19:00 07:00 # Voids 2 Assessment/Plan Assessment/Plan Assessment #Dysphagia w/ Resultant FTT and Cachexia; CT A/P w/ concern for Fecal Impaction vs Sterocolitis; F/U with GI regarding need for EGD/[place] #A-Fib, not on AC , currently in SR per EKG #HTN #Macrocytic Anemia, B12 and Folate levels #Hypothyroidism, TSH mildly elevated but patient on synthroid #BPH Plan Consult to GI; NPO until swallow Eval; gentle IVF w/ D5NS. Will obtain B12 and Folate. Patient to have CT A/P to assess for metastatic process, also anticipate EGD/[place] , but will f/u with GI. Continue SNF meds including Amiodarone, Atorvastatin,ASA, Synthroid, and Finasteride. Obtain echo to assess CHADS VASC. DVT and GI ppx. NPO until swallow eval. 09/11: F/U with GI regarding EGD/[place]. Continue supportive care. Await Swallow Eval. Paloma Hughes D.O. Sep 12, 2019 13:27
[2019-09-12] MEDS ORDERED: Potassium Phosphate 21 MM in NS 275 ML IV ONE (14:30)
[2019-09-12] MEDS ORDERED: HydrALAZINE 10mg Tab ORAL PRN (14:45)
[2019-09-12 16:00] VITALS: BP 156/85
--- NOTE | 2019-09-12 18:15 | NUR ---
NURSE NOTES: Patient did not have BM s/p multiple stool softeners and enema. Dulcolax suppository administered per order.
--- NOTE | 2019-09-12 19:51 | NUR ---
HAND-OFF: Report given to Diane VERDUGO.
--- NOTE | 2019-09-12 19:55 | NUR ---
NURSE NOTES: Received report from LUCINA Camejo. Pt laying in bed on RA, a/a/o. Denies pain. Breathing regular and unlabored, IV fluids running on Right forearm 20G. Bed on low locked positing. Bed alarm on. Will continue to monitor.
[2019-09-12 20:00] VITALS: BP 129/86
[2019-09-12] MEDS: Atorvastatin 80mg tab ORAL SCH (21:04)
[2019-09-13] VITALS: BP 114/67
[2019-09-13 04:00] VITALS: BP 107/60
[2019-09-13] MEDS: HydrALAZINE 25mg tab ORAL SCH ×2 (05:54→15:18)
[2019-09-13 06:10] LABS: BASOPHILS % (AUTO) 1.1 % (0.0-2.0); EOSINOPHILS % (AUTO) 5.6 % (0.0-3.0); HEMATOCRIT 40.2 % (42.0-52.0); HEMOGLOBIN 12.5 G/DL (14.2-18.0); LYMPHOCYTES % (AUTO) 27.8 % (20.0-45.0); MEAN CORPUSCULAR VOLUME 103 FL (80-99); MONOCYTES % (AUTO) 9.1 % (1.0-10.0); NEUTROPHILS % (AUTO) 56.5 % (45.0-75.0); PLATELET COUNT 137 K/UL (150-450); RED BLOOD COUNT 3.92 M/UL (4.70-6.10); RED CELL DISTRIBUTION WIDTH 13.9 % (11.6-14.8); WHITE BLOOD COUNT 4.3 K/UL (4.8-10.8)
--- NOTE | 2019-09-13 06:22 | NUR ---
NURSE NOTES: OB stool collected and sent to lab.
[2019-09-13 07:03] LABS: ANION GAP 5 mmol/L (5-15); BLOOD UREA NITROGEN 9 mg/dL (7-18); CALCIUM 8.5 MG/DL (8.5-10.1); CARBON DIOXIDE 30 MMOL/L (21-32); CHLORIDE 108 MMOL/L (98-107); PHOSPHORUS 2.6 MG/DL (2.5-4.9); SODIUM 144 MMOL/L (136-145)
[2019-09-13 07:08] LABS: POTASSIUM 2.7 MMOL/L (3.5-5.1)
--- NOTE | 2019-09-13 07:20 | NUR ---
NURSE NOTES: Left Dr. Champagne voice massage in regards to Potassium 2.7
--- NOTE | 2019-09-13 07:39 | NUR ---
HAND-OFF: Report given to LUCINA Aponte. Endorsed to f/u with re: potassium.
[2019-09-13] MEDS: D5NS 1,000 ML IV SCH ×2 (07:58→17:30)
[2019-09-13 08:00] VITALS: BP 127/64
--- NOTE | 2019-09-13 08:03 | NUR ---
NURSE NOTES: Patient alert x4; on room air, no sign of distress and shortness of breath; no sing of chest pain; IV Right For-Arm D5NS at 100cc running; side rails up x2, breaks engaged, bed at lowest position, breaks engaged; dressing dry and intact on Left-heel and sacral; call light within reach; will keep monitoring;
--- NOTE | 2019-09-13 08:21 | NUR ---
NURSE NOTES: I received critical lab for K 2.7 by PM nurse, Diane; PM nurse reported to MD Hughes, no order received; I will follow up with that;
--- NOTE | 2019-09-13 08:41 | NUR ---
NURSE NOTES: Patient came back to the floor from CT.
[2019-09-13] MEDS: Aspirin Baby 81mg ORAL SCH (08:47)
[2019-09-13] MEDS: Sennosides 8.6mg tab ORAL SCH (08:47)
[2019-09-13] MEDS: Magnesium Oxide 400mg tab ORAL SCH (08:47)
[2019-09-13] MEDS: Miralax 17gm pkt ORAL SCH (08:47)
[2019-09-13] MEDS: Docusate 250mg cap ORAL SCH (08:47)
[2019-09-13] MEDS: Amiodarone 200mg tab ORAL SCH (08:47)
--- NOTE | 2019-09-13 09:29 | Diagnostic Imaging Report ---
EXAM: CT CT Chest no Contrast CLINICAL HISTORY: Shortness of breath. History of pneumonia and Covid treatment. Pulmonary nodules on chest x-ray. TECHNIQUE: Axial images obtained through the chest without contrast. All CT scans at this facility are performed using dose modulation techniques as appropriate to a performed exam including the following: automated exposure control with adjustment of the mA and/or kV according to patient size. RADIATION DOSE: CTDIvol: 2.8 mGy DLP: 122.8 mGy-cm Dose information generated by the CT scanner is available in PACS. COMPARISON: Chest x-ray 09/10/2019 FINDINGS: There are bilateral apical pleural parenchymal scarring. There are multiple calcified granulomas noted in both lungs including the left upper lobe and right lower lobe. There is a cluster of small noncalcified subpleural nodules in the right lower lobe likely postinflammatory as well. Scattered inflammatory/postinflammatory changes noted in the right upper lobe, superior segment right lower lobe as well as in the dependent aspect of both lower lobes. There is also mild to moderate central bronchiectasis. Cardiac and mediastinal structures are within normal limits. Calcified granulomas noted in the right hilar and subcarinal regions. There are bilateral tiny effusions. Limited images through the upper abdomen show small amount of ascites. There are multiple renal cysts. Increased stool lucencies noted throughout the colon. IMPRESSION: BILATERAL INFLAMMATORY/POSTINFLAMMATORY CHANGES SCATTERED ABOUT BOTH LUNGS. BILATERAL TINY EFFUSIONS. 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 SMALL CLUSTER OF MICRONODULES IN THE RIGHT LOWER LOBE LIKELY POSTINFLAMMATORY WELL. MILD TO MODERATE CENTRAL BRONCHIECTASIS. SMALL AMOUNT OF ASCITES.
--- NOTE | 2019-09-13 09:31 | General Progress Note ---
Assessment/Plan Assessment/Plan: 1. History of metabolic encephalopathy. 2. Atrial fibrillation. 3. Peripheral vascular disease. 4. Dysphagia. 5. Recent history of COVID positive pneumonia, status post treatment. 6. BPH. 7. GERD. 8. fecal impaction 9. pancreatic cyst 10. ascites 11. AAA 5 cm 12. Hypothroid bowel regimen had BM>>> fu stool ob speech eval Free T4 check>>> normal push po's dietitian in put appreciated>> add ensure will fu anemia work up Subjective ROS Limited/Unobtainable: Yes Allergies: Coded Allergies: No Known Allergies (Unverified , 09/10/19) Objective Last 24 Hour Vital Signs Date Time Temp Pulse Resp B/P (MAP) Pulse Ox O2 Delivery O2 Flow Rate FiO2 09/13/19 05:54 114/63 09/13/19 04:00 97.4 56 19 107/60 (76) 99 09/13/19 00:00 97.0 81 20 114/67 (83) 100 09/12/19 21:05 129/86 09/12/19 21:00 Room Air 09/12/19 20:00 98.0 78 19 129/86 (100) 98 09/12/19 16:00 97.6 84 16 156/85 (108) 97 09/12/19 13:14 164/77 09/12/19 12:00 97.1 55 16 164/77 (106) 98 Intake and Output 09/12/19 09/13/19 19:00 07:00 Intake Total 1188 ml 1320 ml Balance 1188 ml 1320 ml Intake Oral 200 ml 120 ml IV Total 988 ml 1200 ml # Voids 4 3 # Bowel Movements 2 Laboratory Tests 09/13/19 05:15: White Blood Count 4.3L, Red Blood Count 3.92L, Hemoglobin 12.5L, Hematocrit 40.2L, Mean Corpuscular Volume 103H, Mean Corpuscular Hemoglobin 32.0H, Mean Corpuscular Hemoglobin Concent 31.2L, Red Cell Distribution Width 13.9, Platelet Count 137L, Mean Platelet Volume 7.8, Neutrophils (%) (Auto) 56.5, Lymphocytes (%) (Auto) 27.8, Monocytes (%) (Auto) 9.1, Eosinophils (%) (Auto) 5.6H, Basophils (%) (Auto) 1.1, Sodium Level 144, Potassium Level 2.7*L, Chloride Level 108H, Carbon Dioxide Level 30, Anion Gap 5, Blood Urea Nitrogen 9 , Creatinine 1.0, Estimat Glomerular Filtration Rate > 60, Glucose Level 105, Calcium Level 8.5, Phosphorus Level 2.6, Magnesium Level 1.8, Free Thyroxine 1.42 09/13/19 06:12: Stool Occult Blood [Pending] Height (Feet): 5 Height (Inches): 11.00 Weight (Pounds): 100 General Appearance: alert EENT: normal ENT inspection Neck: supple Cardiovascular: normal rate Respiratory/Chest: decreased breath sounds Abdomen: normal bowel sounds, non tender, soft Extremities: non-tender Jose Cali MD Sep 13, 2019 09:31
[2019-09-13] MEDS: Flonase Nasal Inhaler 16gm NASAL SCH (09:51)
[2019-09-13] MEDS: Diclofenac 1% Gel 100gm TOPIC SCH ×3 (09:51→18:34)
[2019-09-13] MEDS: Heparin 5000 units/ml inj SUBQ SCH (09:52)
--- NOTE | 2019-09-13 11:20 | Internal Med Progress Note ---
Subjective Date of Service: Sep 13, 2019 Physician Name Paloma Hughes Attending Physician Brianna Champagne MD Current Medications Medications (Trade) Dose Ordered Sig/Drew Route PRN Reason Start Time Stop Time Status Last Admin Dose Admin Acetaminophen (Tylenol) 650 mg Q4H PRN ORAL fever/pain 09/10/19 22:00 10/10/19 21:59 09/12/19 23:55 Amiodarone HCl (Cordarone) 100 mg DAILY ORAL 09/11/19 09:00 12/10/19 08:59 09/13/19 08:47 Aspirin (ASA) 81 mg DAILY ORAL 09/11/19 09:00 10/26/19 08:59 09/13/19 08:47 Atorvastatin Calcium (Lipitor) 80 mg BEDTIME ORAL 09/11/19 21:00 12/10/19 20:59 09/12/19 21:04 Barium Sulfate (Readi-Cat 2) 450 ml NOW PRN ORAL Radiology Procedure 09/11/19 13:00 09/14/19 12:59 Bisacodyl (Dulcolax) 10 mg DAILY PRN RECTAL Constipation 09/10/19 22:00 12/09/19 21:59 09/12/19 18:08 Dextrose/Sodium Chloride 1,000 ml @ 100 mls/hr Q10H IV 09/11/19 15:30 10/11/19 15:29 09/13/19 07:58 Diclofenac Sodium (Voltaren gel) 1 applic QID TOPIC 09/10/19 22:00 12/09/19 21:59 09/13/19 09:51 Docusate Sodium (Colace) 250 mg DAILY ORAL 09/11/19 09:00 10/11/19 08:59 09/13/19 08:47 Ferrous Sulfate (Feosol) 325 mg DAILY ORAL 09/11/19 09:00 12/10/19 08:59 09/13/19 08:48 Finasteride (Proscar) 5 mg DAILY ORAL 09/11/19 09:00 12/10/19 08:59 09/13/19 08:48 Fluticasone Propionate (Flonase) 1 spray DAILY NASAL 09/11/19 09:00 10/11/19 08:59 09/13/19 09:51 Guaifenesin/ Dextromethorphan (Robitussin DM Syrup) 10 ml Q6H PRN ORAL For Cough 09/10/19 22:00 12/09/19 21:59 Heparin Sodium (Porcine) (Heparin 5000 units/ml) 5,000 units EVERY 12 HOURS SUBQ 09/11/19 09:00 10/26/19 08:59 09/13/19 09:52 Hydralazine HCl (Apresoline) 10 mg Q8HR PRN ORAL SBP >160 09/12/19 14:45 12/11/19 14:44 Hydralazine HCl (Apresoline) 25 mg EVERY 8 HOURS ORAL 09/10/19 22:00 12/09/19 21:59 09/13/19 05:54 Iohexol (OMNIPAQUE-300 100ml) 100 ml NOW PRN INJ Radiology Procedure 09/11/19 13:00 09/14/19 12:59 Levothyroxine Sodium (Synthroid) 100 mcg DAILY@0630 ORAL 09/11/19 06:30 10/11/19 06:29 09/13/19 05:49 Linaclotide (Linzess) 290 mcg BEFORE BREAKFAST ORAL 09/13/19 06:30 12/12/19 06:29 09/13/19 05:49 Magnesium Hydroxide (Mom) 30 ml DAILY PRN ORAL Constipation 09/10/19 22:00 10/10/19 21:59 Magnesium Oxide (Mag-Ox 400mg) 400 mg DAILY ORAL 09/11/19 09:00 10/11/19 08:59 09/13/19 08:47 Multivitamins (Multivitamins) 1 tab DAILY ORAL 09/11/19 09:00 10/11/19 08:59 09/13/19 08:48 Pantoprazole (Protonix) 40 mg DAILY ORAL 09/11/19 09:00 10/11/19 08:59 09/13/19 08:47 Polyethylene Glycol (Miralax) 34 gm DAILY ORAL 09/11/19 09:00 10/11/19 08:59 09/13/19 08:47 Potassium Chloride 100 ml @ 100 mls/hr Q1H IVPB 09/13/19 09:30 09/13/19 17:29 09/13/19 09:54 Sennosides (Senokot) 17.2 mg DAILY ORAL 09/11/19 09:00 10/11/19 08:59 09/13/19 08:47 Allergies: Coded Allergies: No Known Allergies (Unverified , 09/10/19) Subjective Patient passed swallow eval; He will be started on dysphagia diet. He can be discharged back to SNF after video esophagram. Objective Last Vital Signs Date Time Temp Pulse Resp B/P (MAP) Pulse Ox O2 Delivery O2 Flow Rate FiO2 09/13/19 08:00 98.3 60 18 127/64 (85) 99 09/12/19 21:00 Room Air Laboratory Tests Test 09/13/19 05:15 09/13/19 06:12 White Blood Count 4.3 K/UL (4.8-10.8) L Red Blood Count 3.92 M/UL (4.70-6.10) L Hemoglobin 12.5 G/DL (14.2-18.0) L Hematocrit 40.2 % (42.0-52.0) L Mean Corpuscular Volume 103 FL (80-99) H Mean Corpuscular Hemoglobin 32.0 PG (27.0-31.0) H Mean Corpuscular Hemoglobin Concent 31.2 G/DL (32.0-36.0) L Red Cell Distribution Width 13.9 % (11.6-14.8) Platelet Count 137 K/UL (150-450) L Mean Platelet Volume 7.8 FL (6.5-10.1) Neutrophils (%) (Auto) 56.5 % (45.0-75.0) Lymphocytes (%) (Auto) 27.8 % (20.0-45.0) Monocytes (%) (Auto) 9.1 % (1.0-10.0) Eosinophils (%) (Auto) 5.6 % (0.0-3.0) H Basophils (%) (Auto) 1.1 % (0.0-2.0) Sodium Level 144 MMOL/L (136-145) Potassium Level 2.7 MMOL/L (3.5-5.1) *L Chloride Level 108 MMOL/L (98-107) H Carbon Dioxide Level 30 MMOL/L (21-32) Anion Gap 5 mmol/L (5-15) Blood Urea Nitrogen 9 mg/dL (7-18) Creatinine 1.0 MG/DL (0.55-1.30) Estimat Glomerular Filtration Rate > 60 mL/min (>60) Glucose Level 105 MG/DL (74-106) Calcium Level 8.5 MG/DL (8.5-10.1) Phosphorus Level 2.6 MG/DL (2.5-4.9) Magnesium Level 1.8 MG/DL (1.8-2.4) Free Thyroxine 1.42 NG/DL (0.76-1.46) Stool Occult Blood Pending Microbiology Date/Time Source Procedure Growth Status 09/10/19 18:45 Nasal Nares MRSA Culture - Final Staphylococcus Aureus - Mrsa Complete 09/10/19 18:45 Rectum - Final NO CARBAPENEM-RESISTANT ENTEROBACTERI... Complete 09/10/19 18:45 Rectum VRE Culture - Final NO VANCOMYCIN RESISTANT ENTEROCOCCUS ... Complete Intake and Output 09/12/19 09/13/19 19:00 07:00 Intake Total 1188 ml 1320 ml Balance 1188 ml 1320 ml Intake Oral 200 ml 120 ml IV Total 988 ml 1200 ml # Voids 4 3 # Bowel Movements 2 Objective General Appearance: thin, other - frail EENT: PERRL/EOMI Cardiovascular: normal rate, regular rhythm Respiratory/Chest: lungs clear, normal breath sounds, no respiratory distress Abdomen: soft Neurologic: cable splicing technician II-XII grossly normal Skin: warm/dry Assessment/Plan Assessment/Plan Assessment #Dysphagia w/ Resultant FTT and Cachexia; CT A/P w/ concern for Fecal Impaction vs Sterocolitis; F/U with GI regarding need for EGD/[place] #A-Fib, not on AC , currently in SR per EKG #HTN #Macrocytic Anemia, B12 and Folate levels #Hypothyroidism, TSH mildly elevated but patient on synthroid #BPH Plan Consult to GI; NPO until swallow Eval; gentle IVF w/ D5NS. Will obtain B12 and Folate. Patient to have CT A/P to assess for metastatic process, also anticipate EGD/[place] , but will f/u with GI. Continue SNF meds including Amiodarone, Atorvastatin,ASA, Synthroid, and Finasteride. Obtain echo to assess CHADS VASC. DVT and GI ppx. NPO until swallow eval. 09/11: F/U with GI regarding EGD/[place]. Continue supportive care. Await Swallow Eval. 09/12: Replete electrolytes; d/c to SNF after video swallow study Paloma Hughes D.O. Sep 13, 2019 11:20
[2019-09-13 12:00] VITALS: BP 123/69
--- NOTE | 2019-09-13 12:51 | NUR ---
MACHINE OPERATOR HELPER BEDSIDE SWALLOW EVAL (complete report in care activity section) PATIENT REFERRED FOR BEDSIDE SWALLOW EVALUATION BY DR. MTZ AND DR. MORE. DYSPHAGIA RISK FACTORS FOR THIS 88 Y.O. MALE: ACUTE: Failure to Thrive, odynophagia, oropharyngeal dysphagia, HTN, macrocytic anemia, now COVID-19 Negative. H/O: Metabolic encephalopathy, wedge compression fracture of thoracic vertebrae, right temporomandibular joint disorder, COVID-19 Positive, hypothyroidism, GERD, peripheral vascular disease, dysphagia, tinnitus, anemia, benign prostatic hyperplasia, A-Fib. POLST: Full code, no artificial nutrition/hydration. PLOF: Patient previously consumed regular solids with thin liquids, however, ongoing dysphagia per Patient characterized by globus sensations and intermittent instances of choking/aspirating. RELEVANT MEDS: Robitussin (coughing/congestion); Protonix (GERD) VITALS ON ROOM AIR: HR: 60; RR: 18; SP02 99%. PER RN: Patient completes medication management without significant overt s/s of aspiration. Patient was seen at bedside, is alert and able to express wants and needs. Patient noted with dysphonia, characterized by harsh and strained vocal quality, intermittent pitch breaks, reduced vocal intensity/volume, with reduced sustained pitch. Patient has intact dentition, states primarily masticating with front teeth due to pain when masticating with molars. Patient's oral motor ROM and coordination is slightly slow and reduced, albeit, does not impact Patient's intelligibility. Patient is CHITIMACHA and benefits from minimal distractions and being [id number] while communicating. Patient endorses ongoing dysphagia, globus sensations, and odynophagia (primarily with solid foods) resulting in episodes of choking and aspiration. Patient reports that meals are difficult to complete, and Patient has choking concern while completing PO intake. Patient's VSS for the duration of the session. INITIAL IMPRESSIONS: Mild Oral phase and probable mild to moderate pharyngeal phase dysphagia compounded by poor breathing-swallowing coordination, prolonged and increased oral motor coordination and transit times, exacerbated by suspected poor airway protection (s/s of vocal fold impairments given ongoing dysphonia). Laryngeal elevation is fair to poor with Patient noted to have multiple attempts to initiate pharyngeal swallow prior to complete laryngeal elevation. Given Thin Liquids and Puree Solids: No significant overt s/s of aspiration while at bedside, however, Patient endorses intermittent globus sensations (while pointing to larynx) and odynophagia. Patient reports previously consuming regular solids and thin liquids, solely using front dentition to masticate food due to pain with molars + mastication. Patient endorses concern for his own safety due to fear of choking with PO. PATIENT IS A HIGH RISK FOR POOR PO AND ASPIRATION GIVEN H/O ONGOING DYSPHAGIA, FAILURE TO THRIVE, ODYNOPHAGIA, AND REDUCED SWALLOW EFFICACY. RECOMMENDATIONS: 1. Puree Diet with Thin Liquids, please assist Patient with tray set up and supervise for significant overt s/s of aspiration. -- > Per RD Assessment: Liberalized REGULAR + Ensure Enlive TID w/ meals, Snacks BID + Calorie count x 48 2. MBSS while in house to further evaluate swallow physiology and efficacy given ongoing dysphagia with odynophagia + globus sensations. 3. MACHINE OPERATOR HELPER dysphagia tx and management 3x a week x 1 week. MACHINE OPERATOR HELPER educated Patient on results, recommendations, and plan for MBSS while in house. Patient states agreement. MACHINE OPERATOR HELPER spoke with Dr. More regarding results, recommendations, and needs for MBSS while in house. Endorsed results and recommendations to RN. Patient may benefit from ENT consult for endoscopic evaluation of vocal fold function and physiology given ongoing dysphonia. MACHINE OPERATOR HELPER spoke with solder technician in attempt to schedule MBSS today (09/13/19) given plan to discharge Patient JING. -MACHINE OPERATOR HELPER plans to continue to attempt to complete MBSS while Patient is in house. -If Patient is discharged prior to completing MBSS, Patient will require outpatient MBSS given Ptient's history, and concern for Patient's ability to consume adequate PO nutrition/hydration. Thank you for this referral! MACHINE OPERATOR HELPER [phone]
--- NOTE | 2019-09-13 13:08 | Discharge Instructions ---
Discharge Instructions Discharge Instructions Special Instructions Recommend that patient receive an outpatient EGD and [place], along w/ GI f/u. Continue dysphagia Diet. For Congestive Heart Failure Reminder Report to your physician any weight gain of 5 pounds or more in one week. Paloma Hughes D.O. Sep 13, 2019 13:08
--- NOTE | 2019-09-13 13:46 | NUR ---
NURSE NOTES: Familia, from Radiology department is aware that there is for Video swallow to be done today so that we can discharge patient today;
--- NOTE | 2019-09-13 15:22 | NUR ---
NURSE NOTES:WOUND CARE NOTES: Pt presented on admission with darker skin tone without erythema or induration Sacrum, R and L clefts of Buttocks.Scattered small areas of hyperpigmentation noted R and L buttocks. Pt denied any discomfort when palpated. An area of Hyperpigmentation noted to L Ischium. L Heel boggy, dusky- pink with historical scar. Pt denied tenderness when heel palpated. R Heel is soft but easily Blanchable. R heel is soft but easily blanchable. Tx.Plan: Apply Moisture Barrier Paste to Buttocks. Cover Sacrum with Optifoam drsg. Change every 3days and prn. Apply Cavilon Skin Barrier to both heels. Cover each heel with Optifoam drsg. Change every 7 days and prn. Reposition at least every 2hours or as tolerated. Off-load heels with Pillow.
[2019-09-13 16:00] VITALS: BP 115/73
--- NOTE | 2019-09-13 16:02 | Discharge Summary ---
Discharge Summary Hospital Course Date of Admission Sep 10, 2019 at 17:48 Date of Discharge Admitting Diagnosis FAILURE TO THRIVE HPI This is a 88 yo M w/ a pmh of Atrial fibrillation and PAD who presents, BIBA from SNF 2/2 Dysphagia; when patient was visited at bedside it was evident that he is very thin, and appears to have failure to thrive as well. He states this has been going on for some time, and that he often chokes when he tries to swallow. He is hungry, but he states it often hurts to swallow, or he feels like he cannot get food down. When asked if this has been worked up in the past , patient was unable to provide detailed history. ER report state she tested negative for COVID two months ago. Labs reveal dehydration and macrocytic anemia. Unclear what/if patient has had colonoscopy in the past. PMH: Afib, FTT, Dysphagia, HTN Hospital Course Assessment #FTT, concern for metastatic process as patient also currently has ongoing dysphagia w/ frequent choking episodes, and weight loss #A-Fib, not on AC #HTN #Macrocytic Anemia #Hypothyroidism, pending TSH #BPH Plan Consult to GI; NPO until swallow Eval; gentle IVF w/ D5NS. Will obtain B12 and Folate. Patient to have CT A/P to assess for metastatic process, also anticipate EGD/[place] , but will f/u with GI. Continue SNF meds including Amiodarone, Atorvastatin,ASA, Synthroid, and Finasteride. Obtain echo to assess CHADS VASC. DVT and GI ppx. NPO until swallow eval. *IF CT A/P not revealing, and GI w/u WNL, then will proceed with Oncology work up. 09/12:Spoke with GI who agreed patient was stable for discharge, with a recommendations of outpatient EGD/[place]. For now continue dysphagia diet. D/C to SNF after video swallow study. Discharge Discharge Vital Signs Last Vital Signs Date Time Temp Pulse Resp B/P (MAP) Pulse Ox O2 Delivery O2 Flow Rate FiO2 09/13/19 15:18 123/69 09/13/19 12:00 98.1 67 19 98 09/13/19 09:00 Room Air Discharge Disposition Patient was discharged to Paloma Hughes D.O. Sep 13, 2019 16:02
--- NOTE | 2019-09-13 16:26 | NUR ---
ANALYTICAL SCIENCES DIRECTOR MBSS RESULTS COMPLETED MBSS WITH PATIENT, COMPLETE REPORT IN CARE ACTIVITY SECTION Patient is on room air, agreeable to PO trials of varibar in various consistencies to evaluate swallow physiology and function. MBSS indicated due to ongoing Globus sensations, odynophagia, dysphonia, and new dx of failure to thrive resulting in concern for Patient's ability to meet adequate PO nutrition/hydration. Patient tolerated the examination well and VSS for the duration of the session. INITIAL IMPRESSIONS Mild to Moderate Oropharyngeal dysphagia with increased oral preparation and oropharyngeal transit times due to sensorimotor deficits and compounded by reduced respiratory strength (poor cough efficacy, dysphonia), fatigue, and suspect s/s of esophageal dysmotility. Patient noted with trace and silent laryngeal penetration noted above the vocal cords with thin liquids, nectar thick liquids, and puree/pudding thick due to delayed swallow, late and incomplete laryngeal vestibular closure (poor airway protection), absent to diminished pharyngeal stripping wave and marked obstruction of bolus flow at the pharyngoesophageal segment opening; this resulted in residuals remaining in pyriform sinus and at the level of C5-C6 (worse with thicker consistencies versus thin liquids). Patient presenting as an aspiration risk given reduced pharyngeal sensation; Patient required verbal cues to re-swallow/for multiple swallows. Patient additionally noted with wet vocal quality with nectar thick liquids; coughs were ineffective in clearing remaining residuals. THIN LIQUIDS PAS 3 TSP/Cup: No radiographic evidence of aspiration. Laryngeal Penetration above the vocal folds, residuals remaining in valleculae and pyriform sinuses despite Patients use of multiple swallows and/or cough and re-swallow. NECTAR THICK LIQUIDS: PAS 3 TSP/Cup: No radiographic evidence of aspiration. Laryngeal penetration above the vocal folds, ongoing pharyngeal residuals in valleculae and pyriform sinuses (worse with nectar thick liquids versus thin liquids). Patient noted with wet vocal quality, coughs/use of strategies (multiple swallows) not effective in clearing. Additionally, chin tuck postural modification was attempted which did not facilitate swallow efficacy or safety. PUREE/PUDDING THICK: PAS 2 TSP: No radiographic evidence of aspiration. Laryngeal Penetration above the vocal folds which was ejected with multiple swallows. Incomplete Pharyngoesophageal segment opening resulting in half of bolus remaining in pyriform sinuses, Patient was able to eventually clear some residuals with multiple swallows. Patient required encouragement to complete PO trials of thin liquids, nectar thick liquids, and pudding/puree, towards the end of the examination, Patient noted to have ongoing residuals remaining in pyriform sinus and PO trials of masticated solids were not administered due to Patient request to be done compounded by Patient's risk of aspiration versus choking. HAS ASPIRATION RISK AND REDUCED SWALLOW EFFICIENCY DUE TO THE FOLLOWING DEFICITS: Oral Impairment: Bolus transport/lingual motion Pharyngeal Impairment: Initiation of pharyngeal swallow Soft palate elevation Laryngeal elevation (LE) Epiglottic Inversion/movement Pharyngeal stripping wave Laryngeal vestibular closure Tongue base retraction Pharyngeal residue: diffuse Decreased pharyngeal sensation ESOPHAGEAL PHASE Patient noted to have minimal distention of pharyngoesophageal segment opening, with marked obstruction of bolus flow resulting in slowly moving bolus at C5-C6 through the thoracic esophagus. Patient will require further objective GI evaluation/consult to evaluate and manage esophageal function and motility. TRIAL TX: Patient attempted chin tuck postural modification which was not effective in facilitating swallow safety or efficacy. Patient benefitted from verbal cues to re-swallow, throat clear and re-swallow due to moderate pharyngeal residuals remaining and presenting as an aspiration risk. RECOMMENDATIONS: 1. Moist Puree with Thin Liquids, no straws, Patient must remain upright for at least 1 hour for GERD precautions. Please assist Patient with tray set up; Patient benefits from verbal cues for multiple swallows and/or cough and re-swallow. 2. Patient benefits for ANALYTICAL SCIENCES DIRECTOR at next level of care to re-evaluate Patient on admission and determine appropriateness for ANALYTICAL SCIENCES DIRECTOR POC to address Patients oropharyngeal dysphagia. 3. GI consult for object evaluation of Esophageal function due to s/s of esophageal dysmotility 4. Nursing to assist Patient with oral hygiene BID 5. MD to consider dental consult due to Patient reports of mild to moderate pain when masticating with molars. ANALYTICAL SCIENCES DIRECTOR PLANS TO CONTINUE TO F/U WITH PATIENT WHILE IN HOUSE FOR DIET TOLERANCE AND DYSPHAGIA TX/MANAGEMENT ANALYTICAL SCIENCES DIRECTOR [id number]
--- NOTE | 2019-09-13 16:43 | NUR ---
*-*DISCHARGE PLANNED*-* PATIENT HAS BEEN ACCEPTED AND WILL BE DISCHARGED BACK TO: [facility] P:[phone] FOR NURSE TO NURSE REPORT [facility] TRANSPORTATION SET FOR 6PM S/W [place] [id number] ATTEMPTED TO CALL TO PATIENTS DUNCAN DUBOIS, IN REGARDS TO DISCHARGE PLAN, PHONE LINE BUSY.
--- NOTE | 2019-09-13 19:10 | NUR ---
HAND-OFF: Report given to given to LUCINA Lam. Wound care provided, pictures uploaded on patient's file; Telephone report given to Casie at [facility]; printed package for discharge prepared; patient is stable;
--- NOTE | 2019-09-14 16:40 | Diagnostic Imaging Report ---
Swallow Function Video CLINICAL HISTORY: Reason For Exam: [id number]. COMPARISON: None FINDINGS: Video swallow is performed with patient's given various consistencies of barium and swallowing mechanism is evaluated under direct fluoroscopy. The patient demonstrates penetration and not papito aspiration. There is moderate laryngeal residual. Fluoroscopy time was 156 seconds and 10 images were obtained. Fluoroscopy dose is 0.84645 uGy*m2. Please see separate detailed notes from speech therapy. IMPRESSION: VIDEOFLUOROSCOPY FOR SPEECH EVALUATION PERFORMED. PLEASE SEE SEPARATE DETAILED NOTES SPEECH THERAPY.
== END 2019-09-13 19:20 | disposition home or self-care (01) | DRG 392 ==
LOC: EDBD 17:12 → EMR 17:45 → 3E 17:48 → EDBEDREQ 19:16 → 3E 20:32
DX: R13.10 Dysphagia, unspecified (principal); R64 Cachexia; K86.2 Cyst of pancreas; R18.8 Other ascites; Z68.1 Body mass index [BMI] 19.9 or less, adult; I48.91 Unspecified atrial fibrillation; I10 Essential (primary) hypertension; E03.9 Hypothyroidism, unspecified; N40.0 Benign prostatic hyperplasia without lower urinary tract symptoms; K56.41 Fecal impaction; I73.9 Peripheral vascular disease, unspecified; K21.9 Gastro-esophageal reflux disease without esophagitis; Z86.39 Personal history of other endocrine, nutritional and metabolic disease; D50.9 Iron deficiency anemia, unspecified; E86.0 Dehydration; R62.7 Adult failure to thrive; D64.9 Anemia, unspecified; I71.4 Abdominal aortic aneurysm, without rupture
CPT/HCPCS: 36415; 71045; 71250; 74177; 74230; 80048; 80053; 81003; 82270; 82378; 82607; 82746; 83540; 83550; 83690; 83735; 84100; 84439; 84443; 85007; 85025; 87081; 92610; 93005; 93306; 96360; 96361; 99285; J8499